=== PATIENT | male | born 1965 | race Caucasian/White ===

== ENCOUNTER → 2023-12-10 13:41 | Outpatient (REF) | payer OTHER, SELFPAY | LOC: RAD 13:41 | PROVIDERS: ATTENDING PHYSICIAN Student in an Organized Health Care Education/Training Program | DX: J85.1 Abscess of lung with pneumonia (principal) | CPT/HCPCS: 71046 ==

== ENCOUNTER → 2025-08-30 14:05 | Outpatient (REF) | payer OTHER, SELFPAY | LOC: RAD 14:05 | PROVIDERS: ATTENDING PHYSICIAN Student in an Organized Health Care Education/Training Program | DX: J43.9 Emphysema, unspecified (principal); R61 Generalized hyperhidrosis | CPT/HCPCS: 36415; 71046; 87389 ==

== ENCOUNTER → 2025-09-02 09:40 | Outpatient (REF) | payer OTHER, SELFPAY | LOC: REG 09:40 | PROVIDERS: ATTENDING PHYSICIAN Student in an Organized Health Care Education/Training Program | DX: J34.9 Unspecified disorder of nose and nasal sinuses (principal); R61 Generalized hyperhidrosis | CPT/HCPCS: 36415; 86480 ==